=== PATIENT | female | born 1950 | race Caucasian/White ===

== ENCOUNTER → 2020-03-25 | Day surgery (SDC) | payer MEDICARE ==
[2020-03-22 16:48] LABS: BASOPHILS % 0.4 % (0.0-1.0); EOSINOPHILS # (AUTO) 0.2 (0.0-0.4); EOSINOPHILS % 1.6 % (0.0-6.0); HEMATOCRIT 32.2 % (34.2-44.1); HEMOGLOBIN 9.8 g/dL (12.0-16.0); LYMPHOCYTES # (AUTO) 0.9 (1.0-3.2); LYMPHOCYTES % 8.7 % (18.0-39.1); MEAN CORPUSCULAR HEMOGLOBIN 30.4 pg (28-32); MEAN CORPUSCULAR HGB CONC 30.4 g/dL (31-35); MONOCYTES # (AUTO) 0.6 (0.2-0.8); MONOCYTES % 5.8 % (4.4-11.3); NEUTROPHILS % 83.1 % (38.7-80.0); PLATELET COUNT 260 x10e3/uL (140-360); RED BLOOD COUNT 3.22 x10e6/uL (3.6-5.1); RED CELL DISTRIBUTION WIDTH 13.2 % (11.7-14.4)
[2020-03-22 16:59] LABS: INR 2.04
[2020-03-22 17:00] LABS: PARTIAL THROMBOPLASTIN TIME 44.7 seconds (23.8-35.5)
[2020-03-22 17:09] LABS: ANION GAP 14.2 mmol/L (8-16); CALCIUM 9.3 mg/dL (8.4-10.2); CREATININE, SERUM 2.63 mg/dL (0.57-1.11); POTASSIUM 4.2 mmol/L (3.5-5.1)
--- NOTE | 2020-03-22 17:46 | Diagnostic Imaging Report ---
EXAMINATION: CHEST 2 VIEWS INDICATION: Preoperative evaluation of the lungs. COMPARISON: None FINDINGS: TUBES and LINES: None. LUNGS: The lungs are hyperinflated with flattening of the diaphragm. There is hazy opacification the bilateral lung bases. No consolidations. PLEURA: No pleural effusion or pneumothorax. HEART AND MEDIASTINUM: The cardiomediastinal silhouette is unremarkable. There are atherosclerotic calcifications within the aorta. BONES AND SOFT TISSUES: No acute osseous lesion. Soft tissues are unremarkable. UPPER ABDOMEN: No free air under the diaphragm. IMPRESSION: 1. Hazy opacification of the bilateral lung bases which may represent atelectasis and/or developing multifocal pneumonia. 2. Findings compatible with chronic emphysema. Signed by: Garth Mckenzie MD on 03/22/2020 5:43 PM
[~2020-03-25] MED LIST: ALBUTEROL0.63 MG/3 INH; BREO ELLIPTA 11 EACH INH; BUPIVACAINE 7.5MG/ML /DEXTROSE 82.5MG/ML 2 ML AMP INJ ONE; CARDIZEM60 MG PO; CEFTRIAXONE SOD 1 GM/NS 50 ML 50 ML IV ONE; INCRUSE ELLI62.5 MCG INH; IOPAMIDOL 300MG/ML 50ML INFUS..BTL IV ONE; LEVOTHYROXINE25 MCG PO; LIDOCAINE HCL 2% 30 ML TUBE ONE; LIDOCAINE HCL-PF 4% 40 MG/1 ML 5ML AMP ONE; LIDOCAINE JELLY 2% 10ML URO-JET ONE; MIDAZOLAM HCL 2 MG/2 ML VIAL ONE; SINGULAIR10 MG PO; VITAMIN D3250 MCG PO; XARELTO10 MG PO
[2020-03-25 09:20] VITALS: BP 131/57
--- NOTE | 2020-03-25 10:12 | Diagnostic Imaging Report ---
OR Fluoroscopy: IMPRESSION: Fluoroscopy service provided in the OR. Interpretation not requested. Signed by: Gagan Franklin MD on 03/25/2020 10:09 AM
--- NOTE | 2020-03-29 11:14 | Operative Report ---
DATE OF PROCEDURE: 03/25/2020 SURGEON: Santo Goel MD PREOPERATIVE DIAGNOSES: 1. Multiple chronic urinary tract infections. 2. Clinical signs and symptoms of interstitial cystitis. POSTOPERATIVE DIAGNOSES: 1. Multiple chronic urinary tract infections. 2. Clinical signs and symptoms of interstitial cystitis. 3. Grade 2 cystocele, vaginal atrophy, and right mid ureteral deviation. PROCEDURES: 1. Cystourethroscopy with hydrodistention (entirely separate procedure for clinical signs and symptoms of interstitial cystitis without hematuria). 2. Cystourethroscopy with left ureteral catheterization and left retrograde pyelogram (entirely separate procedure for multiple chronic urinary tract infections). 3. Cystourethroscopy with right ureteral catheterization and right retrograde pyelogram (separate procedure for multiple ureteral stones). 4. Supervision of fluoroscopy. 5. Interpretation of retrograde pyelography. ANESTHESIA: General. ESTIMATED BLOOD LOSS: Minimal. COMPLICATIONS: None. INDICATIONS FOR PROCEDURE: Mrs. Smith is a very pleasant 70-year-old female with history of multiple chronic urinary tract infections. She and I had a long discussion about alternatives, risks, and benefits of doing nothing, cystoscopy, IVP, retrograde pyelogram, renal ultrasound, and hydrodistention. She voiced understanding of the options, alternatives, risks and benefits, and elected to proceed. PROCEDURE IN DETAIL: After informed consent was obtained, the patient was taken to the operative suite, placed supine on the operative table, underwent general anesthesia by the Anesthesia Service. She was placed in dorsal position and sterilely prepped and draped in standard fashion for cystoscopy. Grade 2 cystocele was noted. There was positive vaginal atrophy. A 21-Australian cystoscope was inserted per urethra. Normal urethra was noted. Panendoscopy of the bladder revealed no tumors and no stones. Both ureteral orifices were in normal anatomic location and position and were seen to efflux clear urine. Hydrodistention was performed, revealed a capacity of 800 mL, no glomerulations, no Hunner's ulcers. Bilateral retrograde pyelogram performed showed no hydronephrosis. The right medial ureter was deviated medially and torturous. The followup will need additional abdominal imaging. Stone in the bladder was drained. The patient was awakened from anesthesia and transported to the recovery room in excellent condition. Supervision of fluoroscopy and interpretation of retrograde pyelography: I was present for the entire procedure and supervised fluoroscopy. There was no radiologist present. Attention was turned to the left . Left side was delicate ureter and delicate pelvocaliceal systems; on the right side, there was medial deviation of the mid ureter, delicate collecting systems, no hydronephrosis. MD MARANDA Escudero/MODL /[id number]
== END | disposition home or self-care (01) ==
LOC: OR 12:09
PROVIDERS: ATTEND Urology
DX: N39.0 Urinary tract infection, site not specified (principal); N81.10 Cystocele, unspecified; N95.2 Postmenopausal atrophic vaginitis; I12.9 Hypertensive chronic kidney disease with stage 1 through stage 4 chronic kidney disease, or unspecified chronic kidney disease; N18.30 Chronic kidney disease, stage 3 unspecified; N31.9 Neuromuscular dysfunction of bladder, unspecified; Q62.61 Deviation of ureter; N13.30 Unspecified hydronephrosis; N13.8 Other obstructive and reflux uropathy; E66.01 Morbid (severe) obesity due to excess calories; I49.1 Atrial premature depolarization; J44.9 Chronic obstructive pulmonary disease, unspecified; I48.91 Unspecified atrial fibrillation; E03.9 Hypothyroidism, unspecified; Z01.810 Encounter for preprocedural cardiovascular examination; Z01.812 Encounter for preprocedural laboratory examination; Z01.818 Encounter for other preprocedural examination; Z11.59 Encounter for screening for other viral diseases; Z79.02 Long term (current) use of antithrombotics/antiplatelets; Z68.37 Body mass index [BMI] 37.0-37.9, adult
CPT/HCPCS: 36415; 52005; 71046; 74420; 80048; 85025; 85610; 85730; 93005; C1758; C1769; J0696; J2250; Q9967; U0002